=== PATIENT | female | born 1935 | race African-American/Black ===

== ENCOUNTER 2016-06-23 06:19 | Observation (INO) | payer OTHER ==
[2016-06-23] VITALS (8 sets, daily range): BP systolic 154–228; BP diastolic 77–115; PULSE 73–98; RESP 18–32; TEMP 97.8–98.8; O2SAT 91–98
[~2016-06-23] VITALS: Ht 154.9 cm; Wt 52.0 kg
[~2016-06-23 06:19] MED LIST: ACCU20TA PO; ALBU1AER INH; FERR324T4 PO; HYDR-3129 PO; LEVE500 PO; LEVO75TA3 PO; MEGE20TA PO; PLAV75TA PO; POTA20IN3 PO; PRED1SUS6 EACH EYE; SERT50 PO; SIMV40 PO; TIZA2TAB PO; TOPR100T15 PO; VARE1 PO; [UNRECOGNIZED DRUG - CODE] INH
[2016-06-23] MEDS ORDERED: methylPREDNISolone SOD SUCC 125 MG/2 ML VIAL ONE (06:26)
[2016-06-23] MEDS: RESP: ALBUTEROL 2.5 MG/IPRATROPIUM 0.5 MG NEB (SCH) INH ×3 (06:40→06:50)
[2016-06-23] MEDS ORDERED: IRON18TA2 PO (06:43)
[2016-06-23] MEDS ORDERED: SIMV40TA PO (06:43)
[2016-06-23] MEDS ORDERED: BECL80AE3 INH (06:43)
[2016-06-23] MEDS ORDERED: METO100T PO (06:43)
[2016-06-23] MEDS ORDERED: POTA-163 PO (06:43)
[2016-06-23] MEDS ORDERED: MEGE20TA PO (06:43)
[2016-06-23] MEDS ORDERED: CENTTAB PO (06:43)
[2016-06-23] MEDS ORDERED: LEVE500 PO (06:43)
[2016-06-23] MEDS ORDERED: PLAV75TA29 PO (06:43)
[2016-06-23] MEDS ORDERED: LEVO125T4 PO (06:43)
[2016-06-23] MEDS ORDERED: MAGNESIUM SULFATE 1 GM PREMIX 100 ML IV ONE (06:45)
[2016-06-23] MEDS ORDERED: hydrALAZINE HCL 20 MG/ML VIAL IV PUSH ONE (06:45)
[2016-06-23] MEDS ORDERED: methylPREDNISolone SOD SUCC 125 MG/2 ML VIAL IVP ONE (06:45)
[2016-06-23] MEDS ORDERED: SODIUM CHLORIDE 0.9% FLUSH 5 ML FLUSH IVF PRN (06:45)
--- NOTE | 2016-06-23 06:54 | PD ---
HPI Chief Complaint: Respiratory Distress Time Seen by Provider: 06:30 Travel History International Travel<30 days: No Contact w/Intl Traveler<30days: No Traveled to known affect area: No History of Present Illness HPI Patient is a 80-year-old female with history of COPD, presents to emergency room with complaints of COPD exacerbation. Patient reports that she woke up around 5 AM with shortness of breath and wheezing. Reports that she does smoke 6 cigarettes per day, she does not use home O2 at baseline. Reports that she has been coughing and noticed increased productive sputum over the past day. Patient reports no sick contacts. Patient denies any fevers or chills. Patient denies chest pain. Patient reports that her chest feels tight with her increased wheezing. PFSH Past Medical History Arthritis: Yes Cerebrovascular Accident: Yes (USES A CANE HAS RESIDUAL LEFT SIDED WEAKNESS) Coronary Artery Disease: Yes Diabetes: Yes GERD: Yes Hypertension: Yes Seizures: Yes Thyroid Disease: Yes ?: Not Menopausal: Yes Past Surgical History Hysterectomy: Yes Other Surgery: Yes (CAROTID ARTERY SX) Social History Alcohol Use: No Tobacco Use: Yes Substance Use: No Allergies-Medications (Allergen,Severity, Reaction): Coded Allergies: No Known Allergies (Unverified , 12/14/11) Reported Meds & Prescriptions Reported Meds & Active Scripts Active Reported Chantix 1 Mg Continuing Month Pack (Varenicline) 1 Mg Tab 1 Mg PO DAILY [place] 10/325 (Hydrocodone-Acetaminophen 10/325) Acetaminophen 325/10 Hydrocodone Tab 1 Tab PO Q6H PRN Plavix (Clopidogrel Bisulfate) 75 Mg Tab 75 Mg PO DAILY Accuretic 20/12.5 (Quinapril HCl/Hydrochlorothiazide) Tab 1 Tab PO DAILY Qvar (Beclomethasone Dipropionate) 80 Mcg/Act Aer 1 Puff INH BID Zoloft (Sertraline HCl) 50 Mg Tab 50 Mg PO DAILY Zanaflex 2 mg (Tizanidine HCl) 2 Mg Tab 2 Mg PO BID PRN Proair Hfa (Albuterol Sulfate) 8.5 Gm Aero 2 Puff INH Q4H PRN * SHAKE WELL BEFORE USE * Ferrous Sulfate 325 Mg Tab 325 Mg PO TID Zocor (Simvastatin) 40 Mg Tab 40 Mg PO HS Prednisolone Acetate 1 % Devi 2 Drop EACH EYE QID Potassium Chloride ER 20 meq 20 Meq Tab 20 Meq PO Q12 Toprol XL (Metoprolol Succinate) 100 Mg Tab 100 Mg PO DAILY Megace (Megestrol Acetate) 20 Mg Tab 20 Mg PO BIDPC Levothyroxine 75 mcg (Levothyroxine Sodium) 75 Mcg Tab 75 Mcg PO DAILY Keppra (Levetriacetam) 500 Mg Tab 500 Mg PO Q12 Review of Systems General / Constitutional: No: Fever, Chills Eyes: No: Visual changes HENT: No: Headaches Cardiovascular: No: Chest Pain or Discomfort Respiratory: Positive: Cough, Shortness of Breath Gastrointestinal: No: Abdominal Pain Genitourinary: No: Dysuria Musculoskeletal: No: Pain Skin: No Rash Neurologic: No: Weakness Psychiatric: No: Depression Endocrine: No: Polydipsia Hematologic/Lymphatic: No: Easy Bruising Physical Exam Narrative GENERAL: Patient in moderate respiratory distress SKIN: Warm and dry. HEAD: Atraumatic. Normocephalic. EYES: Pupils equal and round. No scleral icterus. No injection or drainage. ENT: No nasal bleeding or discharge. Mucous membranes pink and moist. NECK: Trachea midline. No JVD. CARDIOVASCULAR: Tachycardic. No murmur appreciated. RESPIRATORY: Patient with accessory muscle use. Patient with scattered diffuse wheezing GASTROINTESTINAL: Abdomen soft, non-tender, nondistended. Hepatic and splenic margins not palpable. MUSCULOSKELETAL: No obvious deformities. No clubbing. No cyanosis. No edema. NEUROLOGICAL: Awake and alert. No obvious cranial nerve deficits. Motor grossly within normal limits. Normal speech. PSYCHIATRIC: Appropriate mood and affect; insight and judgment normal. Data Data Last Documented VS Vital Signs Date Time Temp Pulse Resp B/P Pulse Ox O2 Delivery O2 Flow Rate FiO2 06/23/16 06:32 98.3 79 32 228/115 91 06/23/16 06:20 Room Air Orders Methylprednisolone So Succ Inj (Solumedr (06/23/16 06:26) Complete Blood Count With Diff (06/23/16 06:31) Comprehensive Metabolic Panel (06/23/16 06:31) B-Type Natriuretic Peptide (06/23/16 06:31) Act Partial Throm Time (Ptt) (06/23/16 06:31) Prothrombin Time / Inr (Pt) (06/23/16 06:31) Magnesium (Mg) (06/23/16 06:31) Ckmb (Isoenzyme) Profile (06/23/16 06:31) Troponin I (06/23/16 06:31) Arterial Blood Gas (Abg) (06/23/16 06:31) Urinalysis - C+S If Indicated (06/23/16 06:31) Influenzae A/B Antigen (06/23/16 06:31) Blood Culture (06/23/16 06:31) Iv Access Insert/Monitor (06/23/16 06:31) Ecg Monitoring (06/23/16 06:31) Oximetry (06/23/16 06:31) Oxygen Administration (06/23/16 06:31) Chest, Single Ap (06/23/16 06:31) Sodium Chloride 0.9% Flush (Ns Flush) (06/23/16 06:45) Methylprednisolone So Succ Inj (Solumedr (06/23/16 06:45) Albuterol-Ipratropium Neb (Duoneb Neb) (06/23/16 06:45) Magnesium Sulfate 1 Gm Premix (Magnesium (06/23/16 06:45) MDM Medical Decision Making Medical Screen Exam Complete: Yes Emergency Medical Condition: Yes Interpretation(s) Vital Signs Date Time Temp Pulse Resp B/P Pulse Ox O2 Delivery O2 Flow Rate FiO2 06/23/16 06:32 98.3 79 32 228/115 91 06/23/16 06:20 79 32 91 Room Air Differential Diagnosis COPD exacerbation, pneumonia, influenza, ACS, arrhythmia, electrolyte abnormality Narrative Course Patient is an 80-year-old female who presents to emergency room with COPD exacerbation. Patient is a smoker, currently is not on any home O2. Patient presents to emergency room and moderate respiratory distress, patient with increased wheezing diffusely. Patient was placed on monitoring engineer, was given IV Solu-Medrol as well as DuoNeb. EKG with sinus rhythm at 80 bpm, QT/QTc 390/426 labs and as well as xray of chest ordered. will continue to monitor pt pt signed out to day shift provider at change of shift Rianna Chang DO Jun 23, 2016 06:54
[2016-06-23 06:59] LABS: AUTOMATED NEUTROPHIL # 7.1 TH/MM3 (1.8-7.7); BASOPHIL % 0.4 % (0.0-2.0); EOSINOPHIL # 0.2 TH/MM3 (0-0.4); EOSINOPHIL % 1.7 % (0.0-4.0); HEMATOCRIT 36.5 % (35.0-46.0); HEMO FLAGS DIFF FINAL; LYMPH % 19.8 % (9.0-44.0); MEAN CELL VOLUME 88.9 FL (80.0-100.0); MEAN CORPUSCULAR HEMOGLOBIN 29.3 PG (27.0-34.0); MEAN CORPUSCULAR HGB CONC 32.9 % (32.0-36.0); MONO % 6.7 % (0.0-8.0); NEUT % 71.4 % (16.0-70.0); PLATELET COUNT 208 TH/MM3 (150-450); RED CELL DISTRIBUTION WIDTH 12.6 % (11.6-17.2)
--- NOTE | 2016-06-23 07:00 | RADRPT ---
EXAM DATE/TIME: 06/23/2016 06:32 [facility] COMPARISON: CHEST SINGLE AP, January 03, 2016, 19:43. INDICATIONS : Shortness of breath. MEDICAL HISTORY : None. SURGICAL HISTORY : None. ENCOUNTER: Initial ACUITY: 1 day PAIN SCORE: 0/10 LOCATION: Bilateral chest FINDINGS: A single view of the chest demonstrates bibasilar opacities greater in the right lower lobe. Heart no rmal in size. The cardiomediastinal contours are unremarkable. Osseous structures are intact. CONCLUSION: Bibasilar opacities. Car Arias MD on June 23, 2016 at 6:56 Board Certified Radiologist. This report was verified electronically.
[2016-06-23 07:08] LABS: APTT (PATIENT) 25.2 SEC (24.3-30.1); PROTHROMBIN TIME - PATIENT 11.1 SEC (9.8-11.6)
[2016-06-23 07:22] LABS: ALT (GPT) 30 U/L (10-53); ANION GAP 7 MEQ/L (5-15); AST (GOT) 27 U/L (15-37); BICARBONATE 26.2 MEQ/L (21.0-32.0); BLOOD UREA NITROGEN 17 MG/DL (7-18); CHLORIDE 110 MEQ/L (98-107); GLOMERULAR FILTRATION RATE 60 ML/MIN (>89); MAGNESIUM 1.9 MG/DL (1.5-2.5); POTASSIUM 4.2 MEQ/L (3.5-5.1); SODIUM (NA) 143 MEQ/L (136-145)
[2016-06-23 07:23] LABS: ALKALINE PHOSPHATASE 57 U/L (45-117); TOTAL BILIRUBIN ADULT 0.4 MG/DL (0.2-1.0)
[2016-06-23 07:41] LABS: CREATINE KINASE 71 U/L (26-192)
[2016-06-23 07:59] LABS: BLOOD GAS BASE EXCESS -3.6 mmol/L (-2-2); BLOOD GAS CARBOXYHEMOGLOBIN 2.8 % (0-4); BLOOD GAS HCO3 20 mmol/L (22-26); BLOOD GAS METHEMOGLOBIN 1.8 % (0-2); BLOOD GAS O2 HGB SATURATION 90 % (90-100); BLOOD GAS OXYGEN CONTENT 14.9 Vol % (12.0-20.0); BLOOD GAS PCO2 28 mmHg (38-42); BLOOD GAS PO2 65 mmHG (61-120); BLOOD GAS TOTAL HGB 11.8 G/DL (12.0-16.0); CRITICAL VALUE NO; DRAW SITE LT BRACHIAL; FIO2 21 %; NUMBER OF ARTERIAL PUNCTURES 1; TEMP CORR TO 98.6; ULNAR PULSE PRESENT
[2016-06-23 08:00] LABS: STAT YES
[2016-06-23] MEDS ORDERED: ONDANSETRON HCL 4 MG/2 ML VIAL IVP PRN (08:00)
[2016-06-23] MEDS ORDERED: SENNOSIDES 8.6 MG TAB PO PRN (08:00)
[2016-06-23] MEDS ORDERED: SODIUM CHLORIDE 0.9% FLUSH 5 ML FLUSH FLUSH PRN (08:00)
[2016-06-23] MEDS ORDERED: BISACODYL 10 MG SUPP PR PRN (08:00)
[2016-06-23] MEDS ORDERED: TEMAZEPAM 15 MG CAP PO PRN (08:00)
[2016-06-23] MEDS ORDERED: FUROSEMIDE 40 MG/4 ML VIAL IV PUSH ONE (08:00)
[2016-06-23] MEDS ORDERED: PROCHLORPERAZINE 25 MG SUPP PR PRN (08:00)
[2016-06-23] MEDS ORDERED: ACETAMINOPHEN 325 MG TAB PO PRN (08:00)
[2016-06-23] MEDS ORDERED: MAGNESIUM HYDROXIDE SUSP 30 ML CUP PO PRN (08:00)
--- NOTE | 2016-06-23 08:04 | PD ---
Physical Exam Date Seen by Provider: Jun 23, 2016 Time Seen by Provider: 07:00 Narrative Patient signed out to me at [address] Chang, please see previous notes for further information and details. Here with shortness of breath, history of COPD , and was given Solu-Medrol and DuoNeb's in the ER without significant improvement. Laboratory Tests Test 06/23/16 06/23/16 06:45 07:50 Neutrophils (%) (Auto) 71.4 % (16.0-70.0) Chloride Level 110 MEQ/L (98-107) Creatinine 1.07 MG/DL (0.50-1.00) Estimat Glomerular Filtration 60 ML/MIN (>89) Rate Random Glucose 161 MG/DL (74-106) Troponin I 0.09 NG/ML (0.02-0.05) B-Type Natriuretic Peptide 949 PG/ML (0-100) Albumin 3.1 GM/DL (3.4-5.0) Blood Gas HCO3 20 mmol/L (22-26) Blood Gas Base Excess -3.6 mmol/L (-2-2) Arterial Blood pH 7.46 (7.380-7.420) Arterial Blood Partial 28 mmHg (38-42) Pressure CO2 Blood Gas Hemoglobin 11.8 G/DL (12.0-16.0) Last 24 hours Impressions Chest X-Ray 06/23/16 0631 Signed Impressions: Service Date/Time: Thursday, June 23, 2016 06:32 - CONCLUSION: Bibasilar opacities. Car Arias MD EKG shows NSR, no ST elevation or depression, and no arrhythmias. No significant T-wave inversions. Chest x-ray shows basilar infiltrates and BNP is over 900. At this point, I am concerned about possible underlying CHF. Lasix was initiated in the ER. There is no significant white count and patient has been afebrile, I am less concerned about pneumonia in this case. Case was then discussed with Dr. Xiao for admission. Data Data Last Documented VS Vital Signs Date Time Temp Pulse Resp B/P Pulse Ox O2 Delivery O2 Flow Rate FiO2 06/23/16 07:30 98 22 180/80 94 Room Air 06/23/16 06:32 98.3 Orders Methylprednisolone So Succ Inj (Solumedr (06/23/16 06:26) Complete Blood Count With Diff (06/23/16 06:31) Comprehensive Metabolic Panel (06/23/16 06:31) B-Type Natriuretic Peptide (06/23/16 06:31) Act Partial Throm Time (Ptt) (06/23/16 06:31) Prothrombin Time / Inr (Pt) (06/23/16 06:31) Magnesium (Mg) (06/23/16 06:31) Ckmb (Isoenzyme) Profile (06/23/16 06:31) Troponin I (06/23/16 06:31) Arterial Blood Gas (Abg) (06/23/16 06:31) Urinalysis - C+S If Indicated (06/23/16 06:31) Influenzae A/B Antigen (06/23/16 06:31) Blood Culture (06/23/16 06:31) Iv Access Insert/Monitor (06/23/16 06:31) Ecg Monitoring (06/23/16 06:31) Oximetry (06/23/16 06:31) Oxygen Administration (06/23/16 06:31) Chest, Single Ap (06/23/16 06:31) Sodium Chloride 0.9% Flush (Ns Flush) (06/23/16 06:45) Methylprednisolone So Succ Inj (Solumedr (06/23/16 06:45) Albuterol-Ipratropium Neb (Duoneb Neb) (06/23/16 06:45) Magnesium Sulfate 1 Gm Premix (Magnesium (06/23/16 06:45) Hydralazine Inj (Apresoline Inj) (06/23/16 06:45) Electrocardiogram (06/23/16 06:29) Furosemide Inj (Lasix Inj) (06/23/16 08:00) Beclomethasone 80 Mcg Inh (Qvar 80 Mcg I (06/23/16 09:00) Clopidogrel (Plavix) (06/23/16 09:00) Levetiracetam (Keppra) (06/23/16 09:00) Levothyroxine (Synthroid) (06/23/16 09:00) Megestrol (Megace) (06/23/16 09:00) Metoprolol Tartrate (Lopressor) (06/23/16 09:00) Multivitamin Hematinic Therap (Theragran (06/23/16 09:00) Potassium Chloride (Kcl) (06/23/16 09:00) (Nf) Ferrous Fumarate (Iron) (06/23/16 09:00) (Nf) Simvastatin (06/23/16 21:00) Labs Laboratory Tests Test 06/23/16 06/23/16 06:45 07:50 White Blood Count 10.0 TH/MM3 Red Blood Count 4.10 MIL/MM3 Hemoglobin 12.0 GM/DL Hematocrit 36.5 % Mean Corpuscular Volume 88.9 FL Mean Corpuscular Hemoglobin 29.3 PG Mean Corpuscular Hemoglobin 32.9 % Concent Red Cell Distribution Width 12.6 % Platelet Count 208 TH/MM3 Mean Platelet Volume 9.2 FL Neutrophils (%) (Auto) 71.4 % Lymphocytes (%) (Auto) 19.8 % Monocytes (%) (Auto) 6.7 % Eosinophils (%) (Auto) 1.7 % Basophils (%) (Auto) 0.4 % Neutrophils # (Auto) 7.1 TH/MM3 Lymphocytes # (Auto) 2.0 TH/MM3 Monocytes # (Auto) 0.7 TH/MM3 Eosinophils # (Auto) 0.2 TH/MM3 Basophils # (Auto) 0.0 TH/MM3 CBC Comment DIFF FINAL Differential Comment Prothrombin Time 11.1 SEC Prothromb Time International 1.0 RATIO Ratio Activated Partial 25.2 SEC Thromboplast Time Sodium Level 143 MEQ/L Potassium Level 4.2 MEQ/L Chloride Level 110 MEQ/L Carbon Dioxide Level 26.2 MEQ/L Anion Gap 7 MEQ/L Blood Urea Nitrogen 17 MG/DL Creatinine 1.07 MG/DL Estimat Glomerular Filtration 60 ML/MIN Rate Random Glucose 161 MG/DL Calcium Level 8.7 MG/DL Magnesium Level 1.9 MG/DL Total Bilirubin 0.4 MG/DL Aspartate Amino Transf 27 U/L (AST/SGOT) Alanine Aminotransferase 30 U/L (ALT/SGPT) Alkaline Phosphatase 57 U/L Total Creatine Kinase 71 U/L Troponin I 0.09 NG/ML B-Type Natriuretic Peptide 949 PG/ML Total Protein 7.3 GM/DL Albumin 3.1 GM/DL Blood Gas Puncture Site LT BRACHIAL Blood Gas Patient Temperature 98.6 Blood Gas HCO3 20 mmol/L Blood Gas Base Excess -3.6 mmol/L Blood Gas Oxygen Saturation 90 % Arterial Blood pH 7.46 Arterial Blood Partial 28 mmHg Pressure CO2 Arterial Blood Partial 65 mmHG Pressure O2 Arterial Blood Oxygen Content 14.9 Vol % Arterial Blood 2.8 % Carboxyhemoglobin Arterial Blood Methemoglobin 1.8 % Blood Gas Hemoglobin 11.8 G/DL Blood Gas Inspired Oxygen 21 % MDM Medical Record Reviewed: Yes Supervised Visit with TERRI: No Diagnosis Primary Impression: CHF (congestive heart failure) Admitting Information Admitting Physician Requests: Guillaume Rubio MD Jun 23, 2016 08:04
[2016-06-23] MEDS ORDERED: RESP: ALBUTEROL 2.5 MG/IPRATROPIUM 0.5 MG NEB (PRN) NEB (08:15)
--- NOTE | 2016-06-23 08:20 | EKG ---
Date Performed: 06/23/2016 Time Performed: 06:29:28 PTAGE: 80 years EKG: Sinus rhythm LEFT VENTRICULAR HYPERTROPHY AND ST-T CHANGES ABNORMAL ECG PREVIOUS TRACING : 01/03/2016 20.19 No significant change from previous tracing noted. DOCTOR: Vin Lopez Interpretating Date/Time 06/23/2016 08:19:13
[2016-06-23] MEDS ORDERED: MEGESTROL ACETATE 40 MG TAB PO SCH (09:00)
[2016-06-23] MEDS: FUROSEMIDE 40 MG/4 ML VIAL IV PUSH SCH ×2 (09:00→17:46)
[2016-06-23] MEDS: METOPROLOL TARTRATE 100 MG TAB PO SCH ×2 (09:18→21:00)
[2016-06-23] MEDS: CLOPIDOGREL 75 MG TAB PO SCH (09:18)
[2016-06-23] MEDS: POTASSIUM CHLORIDE 20 MEQ CONTROLLED RELEASE TAB PO SCH (09:18)
[2016-06-23] MEDS: SODIUM CHLORIDE 0.9% FLUSH 5 ML FLUSH FLUSH SCH ×2 (09:19→21:00)
[2016-06-23] MEDS: levETIRAcetam 500 MG TAB PO SCH ×2 (09:19→21:00)
[2016-06-23 09:49] LABS: BLOOD, URINE NEG (NEG); GLUCOSE,URINE NEG (NEG); HYALINE CAST, URINE 4 /lpf (RARE); KETONE, URINE NEG (NEG); MUCUS URINE FEW /lpf (OCC); NITRITE,URINE NEG (NEG); SQUAMOUS EPITHELIAL CELL URINE 1 /hpf (0-5); URINE COLOR YELLOW (YELLW/STRAW)
[2016-06-23 09:50] LABS: COMMENT (UR) CULT NOT INDICATED; CULTURE IF INDICATED CULT NOT INDICATED
--- NOTE | 2016-06-23 11:03 | EKG ---
Date Performed: 06/23/2016 Time Performed: 08:31:31 PTAGE: 80 years EKG: Sinus rhythm WITH OCCASIONAL VENTRICULAR PREMATURE COMPLEXES LEFT VENTRICULAR HYPERTROPHY AND ST-T CHANGE ABNORMA L ECG PREVIOUS TRACING : 06/23/2016 06.29 No significant change from previous tracing noted. DOCTOR: Vin Lopez Interpretating Date/Time 06/23/2016 11:01:55
[2016-06-23] MEDS: LEVOTHYROXINE SODIUM 125 MCG TAB PO SCH (12:18)
[2016-06-23] MEDS: BECLOMETHASONE DIPROPIONATE 80 MCG/ACT 8.7 GM INHALER INH SCH ×2 (12:18→21:00)
[2016-06-23] MEDS: FERROUS FUMARATE 325 MG TAB (106 MG ELEMENTAL IRON) PO SCH ×2 (12:18→21:00)
[2016-06-23] MEDS: MULTIVITAMIN HEMATINIC THERAPEUTIC TAB PO SCH (12:18)
[2016-06-23] MEDS: ENOXAPARIN SODIUM 40 MG/0.4 ML SYRINGE SQ SCH (14:13)
[2016-06-23] MEDS ORDERED: ENALAPRILAT 2.5 MG/2 ML VIAL IV PUSH PRN (15:15)
--- NOTE | 2016-06-23 15:20 | HHI.HP ---
[facility] Primary Care Physician Non-Staff Admission Diagnosis shortness of breath/new-onset CHF Diagnoses: Chief Complaint: sob Travel History International Travel<30 Days: No Contact w/Intl Traveler <30 Da: No Traveled to Known Affected Are: No History of Present Illness 80-year-old female with history of COPD, CVA with residual left sided weakness, legally blind presents to emergency room with complaints of sob. Patient reports that she woke up around 5 AM with shortness of breath and wheezing. Reports that she does smoke 6 cigarettes per day, she does not use home O2 at baseline. Reports that she has been coughing and noticed increased productive sputum over the past day. Patient reports no sick contacts. Patient denies any fevers or chills. Patient denies chest pain. Patient reports that her chest feels tight with her increased wheezing. She uses a cane at home. Review of Systems ROS Limitations: Poor Historian Constitutional: DENIES: Fever, Chills, Change in appetite Endocrine: DENIES: Heat/cold intolerance Eyes: DENIES: Blurred vision, Eye pain Ears, nose, mouth, throat: DENIES: Tinnitus, Hearing loss, Vertigo, Nasal discharge, Oral lesions, Throat pain, Hoarseness, Ear Pain, Running Nose, Epistaxis, Sinus Pain, Toothache, Odynophagia Respiratory: COMPLAINS OF: Cough, Wheezing, Sputum production, Shortness of breath, DENIES: Apneas, Snoring, Hemoptysis Cardiovascular: COMPLAINS OF: Dyspnea on Exertion, Orthopnea, DENIES: Chest pain, Palpitations, Syncope, PND, Lower Extremity Edema, Claudication Gastrointestinal: DENIES: Abdominal pain, Black stools, Bloody stools, Constipation, Diarrhea, Nausea, Vomiting, Difficulty Swallowing, Anorexia Genitourinary: DENIES: Urinary frequency, Urinary incontinence, Urgency Musculoskeletal: DENIES: Joint pain Integumentary: DENIES: Rash Neurologic: DENIES: Abnormal gait, Headache, Localized weakness, Paresthesias, Seizures, Speech Problems, Tremor, Poor Balance Psychiatric: DENIES: Anxiety, Mood changes Past Family Social History Past Medical History COPD, CVA with residual left sided weakness, legally blind Past Surgical History CEA CS Reported Medications Last Impressions Chest X-Ray 06/23/16 0631 Signed Impressions: Service Date/Time: Thursday, June 23, 2016 06:32 - CONCLUSION: Bibasilar opacities. Car Arias MD Allergies: Coded Allergies: No Known Allergies (Unverified , 06/23/16) Family History Mother at her Father of old age Social History Tobacco use: 6 cig per day Denies EtOH, illicit drug use. Physical Exam Vital Signs Vital Signs Date Time Temp Pulse Resp B/P Pulse Ox O2 Delivery O2 Flow Rate FiO2 06/23/16 11:11 98.2 77 18 202/90 96 06/23/16 09:24 95 21 06/23/16 07:30 98 22 180/80 94 Room Air 06/23/16 06:32 98.3 79 32 228/115 91 06/23/16 06:20 79 32 91 Room Air 06/23/16 06:20 91 Aerosol Mask 06/23/16 06:20 32 91 Aerosol Mask Physical Exam GENERAL: This is a pleasant 80 yo AA female, legally blind, well-nourished, well -developed patient, in no apparent distress. SKIN: No rashes, ecchymoses or lesions. Cool and dry. HEAD: Atraumatic. Normocephalic. No temporal or scalp tenderness. EYES: Pupils equal round and reactive. Extraocular motions intact. No scleral icterus. No injection or drainage. ENT: Nose without bleeding, purulent drainage or septal hematoma. Throat without erythema, tonsillar hypertrophy or exudate. Uvula midline. Airway patent. NECK: Trachea midline. No JVD or lymphadenopathy. Supple, nontender, no meningeal signs. CARDIOVASCULAR: Regular rate and rhythm without murmurs, gallops, or rubs. RESPIRATORY: Decreased breath sounds. Bibasilar crackles. No wheezes, rales, or rhonchi. GASTROINTESTINAL: Abdomen soft, non-tender, nondistended. No hepato-splenomegaly , or palpable masses. No guarding. MUSCULOSKELETAL: Extremities without clubbing, cyanosis, or edema. No joint tenderness, effusion, or edema noted. No calf tenderness. Negative Homans sign bilaterally. NEUROLOGICAL: Awake and alert. Cranial nerves II through XII intact. Motor and sensory grossly within normal limits. Five out of 5 muscle strength in all muscle groups. Normal speech. Laboratory Laboratory Tests Test 06/23/16 06/23/16 06/23/16 06:45 07:50 09:00 White Blood Count 10.0 Red Blood Count 4.10 Hemoglobin 12.0 Hematocrit 36.5 Mean Corpuscular Volume 88.9 Mean Corpuscular Hemoglobin 29.3 Mean Corpuscular Hemoglobin 32.9 Concent Red Cell Distribution Width 12.6 Platelet Count 208 Mean Platelet Volume 9.2 Neutrophils (%) (Auto) 71.4 Lymphocytes (%) (Auto) 19.8 Monocytes (%) (Auto) 6.7 Eosinophils (%) (Auto) 1.7 Basophils (%) (Auto) 0.4 Neutrophils # (Auto) 7.1 Lymphocytes # (Auto) 2.0 Monocytes # (Auto) 0.7 Eosinophils # (Auto) 0.2 Basophils # (Auto) 0.0 CBC Comment DIFF FINAL Differential Comment Prothrombin Time 11.1 Prothromb Time International 1.0 Ratio Activated Partial 25.2 Thromboplast Time Sodium Level 143 Potassium Level 4.2 Chloride Level 110 Carbon Dioxide Level 26.2 Anion Gap 7 Blood Urea Nitrogen 17 Creatinine 1.07 Estimat Glomerular Filtration 60 Rate Random Glucose 161 Calcium Level 8.7 Magnesium Level 1.9 Total Bilirubin 0.4 Aspartate Amino Transf 27 (AST/SGOT) Alanine Aminotransferase 30 (ALT/SGPT) Alkaline Phosphatase 57 Total Creatine Kinase 71 Troponin I 0.09 0.34 B-Type Natriuretic Peptide 949 Total Protein 7.3 Albumin 3.1 Blood Gas Puncture Site LT BRACHIAL Blood Gas Patient Temperature 98.6 Blood Gas HCO3 20 Blood Gas Base Excess -3.6 Blood Gas Oxygen Saturation 90 Arterial Blood pH 7.46 Arterial Blood Partial 28 Pressure CO2 Arterial Blood Partial 65 Pressure O2 Arterial Blood Oxygen Content 14.9 Arterial Blood 2.8 Carboxyhemoglobin Arterial Blood Methemoglobin 1.8 Blood Gas Hemoglobin 11.8 Blood Gas Inspired Oxygen 21 Urine Color YELLOW Urine Turbidity CLEAR Urine pH 6.0 Urine Specific [place] 1.012 Urine Protein 100 Urine Glucose (UA) NEG Urine Ketones NEG Urine Occult Blood NEG Urine Nitrite NEG Urine Bilirubin NEG Urine Urobilinogen LESS THAN 2.0 Urine Leukocyte Esterase NEG Urine RBC LESS THAN 1 Urine WBC 1 Urine Squamous Epithelial 1 Cells Urine Hyaline Casts 4 Urine Mucus FEW Microscopic Urinalysis Comment CULT NOT INDICATED Date/Time Procedure Status Source Growth 1/9/17 08:30 Influenza Types A,B Antigen (ADDY) - Final Complete Nasal Aspirate NEGATIVE FOR FLU A AND B ANTIGEN.... 06/23/16 06:45 Aerobic Blood Culture Received Blood Peripheral Pending 06/23/16 06:45 Anaerobic Blood Culture Received Blood Peripheral Pending Result Diagram: 06/23/16 0645 06/23/16644 Imaging Last Impressions Chest X-Ray 06/23/16630 Signed Impressions: Service Date/Time: Thursday, June 23, 2016 06:32 - CONCLUSION: Bibasilar opacities. Car Arias MD Assessment and Plan Assessment and Plan Patient is an 80-year-old female who presents to emergency room with sob. New onset CHF H/O CVA COPD Hypertension not controlled EKG with sinus rhythm at 80 bpm, QT/QTc 390/426 Trops 0.9 will trend. Consult cardiology 2D ECHO BNP elevated. Lasix 40 mg IV bid Resume home meds, metoprolol, pavix, ASA. Received hydralazine in the ED. Add lisinopril. Vasotec IV, clonidine as need. DVT ppx with SCD/TEDs Code Status full Discussed Condition With patient, nurse, ED physician Stephanie Xiao MD Jun 23, 2016 15:20
[2016-06-23] MEDS ORDERED: cloNIDine HCL 0.1 MG TAB PO PRN (15:30)
[2016-06-23] MEDS ORDERED: LISINOPRIL 5 MG TAB PO ONE (15:50)
[2016-06-23] MEDS: amLODIPine BESYLATE 5 MG TAB PO SCH (17:45)
[2016-06-23] MEDS: ASPIRIN 81 MG CHEW TAB PO SCH (17:46)
[2016-06-23] MEDS: PRAVASTATIN SOD 80 MG TAB PO SCH (21:00)
--- NOTE | 2016-06-23 21:57 | MB ---
cc: MARY HDZ DATE OF CONSULTATION: 06/23/2016 REASON FOR CONSULTATION: CHF HISTORY OF PRESENT ILLNESS: Emmy Mcginnis is an 80 year-old female with a history of COPD. She continues to smoke currently six cigarettes a day. She came in due to abrupt onset of shortness of breath and wheezing this morning. She denies any chest pain but has had some chest tightness when she is wheezing. She had a previous stroke with left-sided residual weakness. She is also legally blind. She has had a previous carotid endarterectomy. She denies any claudication symptoms despite the findings in her lower extremities. PAST MEDICAL HISTORY 1. Prior stroke. 2. Legally blind. 3. COPD. PAST SURGICAL HISTORY: Carotid endarterectomy. section. SOCIAL HISTORY: Significant for smoking. FAMILY HISTORY: Negative for heart disease. REVIEW OF SYSTEMS: Otherwise negative. PHYSICAL EXAMINATION: An elderly -Mal[place]ian female in no acute distress. VITAL SIGNS: Charted. She has been severely hypertensive. HEENT: Unremarkable. NECK: Negative for JVD or bruits. CHEST: Bilateral wheezes. CARDIAC: S1-S2, regular rate and rhythm. There is a 1/6 systolic murmur. ABDOMEN: Soft. EXTREMITIES: Reveal bilateral femoral artery bruits and severely reduced pedal pulses. I can barely appreciate a right dorsalis pedis pulse. I could not feel any of the other pulses in her legs. EKG: Sinus rhythm, LVH with repolarization abnormality. LABORATORY DATA: Charted. Troponin has gone from 0.09 up to 0.34. BNP elevated 949, creatinine 1.07, hematocrit 36.5. Chest x-ray is interpreted as bibasilar opacities. IMPRESSION An 80-year-old female with COPD, longstanding smoking and appears to probably have underlying hypertensive heart disease, now has mild CHF and suspect also an acute non ST segment elevation myocardial infarction. RECOMMENDATIONS: At this point manage medically after discussion with the patient, to avoid a heart cath. I am going to add Amlodipine for hypertension, 2-D echo Doppler is ordered. Will check a lipid profile. Continue diuresis. Will need further medication adjustment. Further therapy to be determined. MD RENA Knott/OTONIEL /5:07 PM /9:27 PM
[2016-06-24] VITALS (7 sets, daily range): BP systolic 131–181; BP diastolic 62–75; PULSE 68–76; RESP 17–22; TEMP 97.8–98.4; O2SAT 95–100
[2016-06-24] MEDS: LEVOTHYROXINE SODIUM 125 MCG TAB PO SCH (05:15)
[2016-06-24 07:18] LABS: AUTOMATED NEUTROPHIL # 3.5 TH/MM3 (1.8-7.7); BASOPHIL % 0.2 % (0.0-2.0); EOSINOPHIL % 0.5 % (0.0-4.0); HEMATOCRIT 33.6 % (35.0-46.0); HEMO FLAGS DIFF FINAL; LYMPH % 26.5 % (9.0-44.0); LYMPHOCYTE # 1.6 TH/MM3 (1.0-4.8); MEAN CELL VOLUME 86.1 FL (80.0-100.0); MEAN CORPUSCULAR HEMOGLOBIN 28.8 PG (27.0-34.0); MEAN CORPUSCULAR HGB CONC 33.4 % (32.0-36.0); MONO % 12.9 % (0.0-8.0); NEUT % 59.9 % (16.0-70.0); PLATELET COUNT 193 TH/MM3 (150-450); RED CELL DISTRIBUTION WIDTH 12.3 % (11.6-17.2); WHITE BLOOD COUNT 5.9 TH/MM3 (4.0-11.0)
--- NOTE | 2016-06-24 07:27 | HHI.PR ---
Subjective Remarks Feels much better today. Less sob. Denies chest pain, n/v/d/c. Has a good urine output. Objective Vitals Vital Signs Date Time Temp Pulse Resp B/P Pulse Ox O2 Delivery O2 Flow Rate FiO2 06/24/16 04:53 98.4 68 20 158/72 95 06/24/16 00:09 98.2 75 22 145/67 97 06/23/16 22:39 73 06/23/16 19:27 98.8 82 20 154/77 98 06/23/16 17:16 97.8 80 20 187/80 96 06/23/16 11:11 98.2 77 18 202/90 96 06/23/16 09:24 95 21 06/23/16 07:30 98 22 180/80 94 Room Air Result Diagram: 06/23/16 0645 06/23/1645 Imaging Last Impressions Chest X-Ray 06/23/1631 Signed Impressions: Service Date/Time: Thursday, June 23, 2016 06:32 - CONCLUSION: Bibasilar opacities. Car Arias MD Objective Remarks GENERAL: This is a pleasant 80 yo AA female, legally blind, well-nourished, well -developed patient, in no apparent distress. SKIN: No rashes, ecchymoses or lesions. Cool and dry. HEAD: Atraumatic. Normocephalic. No temporal or scalp tenderness. EYES: Pupils equal round and reactive. Extraocular motions intact. No scleral icterus. No injection or drainage. ENT: Nose without bleeding, purulent drainage or septal hematoma. Throat without erythema, tonsillar hypertrophy or exudate. Uvula midline. Airway patent. NECK: Trachea midline. No JVD or lymphadenopathy. Supple, nontender, no meningeal signs. CARDIOVASCULAR: Regular rate and rhythm without murmurs, gallops, or rubs. RESPIRATORY: Decreased breath sounds. Bibasilar crackles. No wheezes, rales, or rhonchi. GASTROINTESTINAL: Abdomen soft, non-tender, nondistended. No hepato-splenomegaly , or palpable masses. No guarding. MUSCULOSKELETAL: Extremities without clubbing, cyanosis, or edema. No joint tenderness, effusion, or edema noted. No calf tenderness. Negative Homans sign bilaterally. NEUROLOGICAL: Awake and alert. Cranial nerves II through XII intact. Motor and sensory grossly within normal limits. Five out of 5 muscle strength in all muscle groups. Normal speech. A/P Assessment and Plan Patient is an 80-year-old female who presents to emergency room with sob. New onset CHF H/O CVA COPD Hypertension, not controlled Elevated troponin, likely demand ischemia from HTN and CHF EKG with sinus rhythm at 80 bpm, QT/QTc 390/426 Trops 0.09 ->0.3->0.3. Cardiology recommends medical management, likely demand ischemia Consult cardiology, appreciate recommendations, medical management. 2D ECHO pending BNP elevated. Lasix 40 mg IV bid change lasix to PO 40 mg daily Monitor UPO and Kidney indices Resume home meds, metoprolol, pavix, ASA. Received hydralazine in the ED. Add lisinopril. Vasotec IV, clonidine as need. Amlodipine increased to 10 MG. DVT ppx with SCD/TEDs Code Status full Discussed Condition With patient, nurse DC plan . Awaiting ECHO, DC if improved and after echo done, and cleared by cards. Stephanie Xiao MD Jun 24, 2016 07:27
[2016-06-24 08:00] LABS: BICARBONATE 25.8 MEQ/L (21.0-32.0); HDL CHOLESTEROL 64.6 MG/DL (40.0-60.0); MAGNESIUM 2.1 MG/DL (1.5-2.5); POTASSIUM 3.4 MEQ/L (3.5-5.1)
[2016-06-24] MEDS: ASPIRIN 81 MG CHEW TAB PO SCH (08:36)
[2016-06-24] MEDS: CLOPIDOGREL 75 MG TAB PO SCH (08:36)
[2016-06-24] MEDS: LISINOPRIL 5 MG TAB PO SCH (08:36)
[2016-06-24] MEDS: levETIRAcetam 500 MG TAB PO SCH ×2 (08:36→20:48)
[2016-06-24] MEDS: ENOXAPARIN SODIUM 40 MG/0.4 ML SYRINGE SQ SCH (08:37)
[2016-06-24] MEDS: FUROSEMIDE 40 MG/4 ML VIAL IV PUSH SCH (08:37)
[2016-06-24] MEDS: amLODIPine BESYLATE 5 MG TAB PO SCH (08:37)
[2016-06-24] MEDS: POTASSIUM CHLORIDE 20 MEQ CONTROLLED RELEASE TAB PO SCH ×2 (08:37→11:24)
[2016-06-24] MEDS: METOPROLOL TARTRATE 100 MG TAB PO SCH ×2 (08:37→20:48)
[2016-06-24] MEDS: SODIUM CHLORIDE 0.9% FLUSH 5 ML FLUSH FLUSH SCH ×2 (08:37→20:50)
[2016-06-24] MEDS: FERROUS FUMARATE 325 MG TAB (106 MG ELEMENTAL IRON) PO SCH ×2 (08:37→20:48)
[2016-06-24] MEDS: MULTIVITAMIN HEMATINIC THERAPEUTIC TAB PO SCH (08:37)
[2016-06-24] MEDS: BECLOMETHASONE DIPROPIONATE 80 MCG/ACT 8.7 GM INHALER INH SCH ×2 (08:39→20:50)
[2016-06-24] MEDS ORDERED: amLODIPine BESYLATE 5 MG TAB PO ONE ×2 (10:15→11:00)
--- NOTE | 2016-06-24 10:23 | PD.CARD.PN ---
Subjective Subjective Remarks no complaints. no chest pain Objective Medications Current Medications Medications (Trade) Dose Ordered Sig/Buster Route Start Time Stop Time Status Last Admin (NS Flush) 2 ml UNSCH PRN IVF 06/23/16 06:45 (Qvar 80 Mcg Inh) 2 puff BID INH 06/23/16 09:00 06/24/16 08:39 (Plavix) 75 mg DAILY PO 06/23/16 09:00 06/24/16 08:36 (Keppra) 500 mg BID PO 06/23/16 09:00 06/24/16 08:36 (Synthroid) 125 mcg DAILY@06 PO 06/23/16 10:00 06/24/16 05:15 (Megace) 20 mg QID PO 06/23/16 09:00 UNV (Lopressor) 100 mg BID PO 06/23/16 09:00 06/24/16 08:37 (Theragran Hematinic) 1 tab DAILY PO 06/23/16 09:00 06/24/16 08:37 (KCl) 20 meq DAILY PO 06/23/16 09:00 06/24/16 08:37 (Hemocyte) 325 mg BID PO 06/23/16 09:00 06/24/16 08:37 (Pravachol) 80 mg HS PO 06/23/16 21:00 06/23/16 21:00 (NS Flush) 2 ml UNSCH PRN FLUSH 06/23/16 08:00 (NS Flush) 2 ml BID FLUSH 06/23/16 09:00 06/24/16 08:37 (Tylenol) 650 mg Q4H PRN PO 06/23/16 08:00 (Zofran Inj) 4 mg Q6H PRN IVP 06/23/16 08:00 (Compazine Supp) 25 mg Q12H PRN [place] 06/23/16 08:00 (Dulcolax Supp) 10 mg DAILY PRN NV 06/23/16 08:00 (Milk Of Magnesia Liq) 30 ml Q12H PRN PO 06/23/16 08:00 (Senokot) 17.2 mg Q12H PRN PO 06/23/16 08:00 (Restoril) 15 mg HS PRN PO 06/23/16 08:00 (Lovenox Inj) 40 mg Q24H SQ 06/23/16 10:00 06/24/16 08:37 (Lasix Inj) 40 mg BID@09,18 IV PUSH 06/23/16 09:00 06/24/16 08:37 (Vasotec Inj) 2.5 mg Q6H PRN IV PUSH 06/23/16 15:15 (Catapres) 0.1 mg Q6H PRN PO 06/23/16 15:30 (Prinivil) 5 mg DAILY PO 06/24/16 09:00 06/24/16 08:36 (Aspirin Chew) 81 mg DAILY PO 06/23/16 17:30 06/24/16 08:36 (Norvasc) 10 mg DAILY PO 06/25/16 09:00 UNV (Norvasc) 5 mg ONCE ONCE PO 06/24/16 10:15 06/24/16 10:16 UNV Vital Signs / I&O Vital Signs Date Time Temp Pulse Resp B/P Pulse Ox O2 Delivery O2 Flow Rate FiO2 06/24/16 07:32 98.0 69 17 181/75 95 06/24/16 04:53 98.4 68 20 158/72 95 06/24/16 00:09 98.2 75 22 145/67 97 06/23/16 22:39 73 06/23/16 19:27 98.8 82 20 154/77 98 06/23/16 17:16 97.8 80 20 187/80 96 06/23/16 11:11 98.2 77 18 202/90 96 Physical Exam Alert Chest less wheezing, mild Laboratory Laboratory Tests Test 06/23/16 06/24/16 06/24/16 21:03 06:28 06:29 Troponin I 0.36 NG/ML Sodium Level 142 MEQ/L Potassium Level 3.4 MEQ/L Chloride Level 108 MEQ/L Carbon Dioxide Level 25.8 MEQ/L Anion Gap 8 MEQ/L Blood Urea Nitrogen 23 MG/DL Creatinine 1.18 MG/DL Estimat Glomerular Filtration 53 ML/MIN Rate Random Glucose 93 MG/DL Calcium Level 8.9 MG/DL Magnesium Level 2.1 MG/DL Triglycerides Level 58 MG/DL Cholesterol Level 128 MG/DL LDL Cholesterol 52 MG/DL HDL Cholesterol 64.6 MG/DL Cholesterol/HDL Ratio 1.98 RATIO White Blood Count 5.9 TH/MM3 Red Blood Count 3.90 MIL/MM3 Hemoglobin 11.2 GM/DL Hematocrit 33.6 % Mean Corpuscular Volume 86.1 FL Mean Corpuscular Hemoglobin 28.8 PG Mean Corpuscular Hemoglobin 33.4 % Concent Red Cell Distribution Width 12.3 % Platelet Count 193 TH/MM3 Mean Platelet Volume 9.2 FL Neutrophils (%) (Auto) 59.9 % Lymphocytes (%) (Auto) 26.5 % Monocytes (%) (Auto) 12.9 % Eosinophils (%) (Auto) 0.5 % Basophils (%) (Auto) 0.2 % Neutrophils # (Auto) 3.5 TH/MM3 Lymphocytes # (Auto) 1.6 TH/MM3 Monocytes # (Auto) 0.8 TH/MM3 Eosinophils # (Auto) 0.0 TH/MM3 Basophils # (Auto) 0.0 TH/MM3 CBC Comment DIFF FINAL Differential Comment B-Type Natriuretic Peptide 608 PG/ML Assessment and Plan Problem List: (1) Elevated troponin Assessment and Plan: Medical therapy (2) Hypertension Assessment and Plan: Increase amlodipine to 10mg (3) CHF (congestive heart failure) Assessment and Plan: change diuretic to PO. Await echo Sheldon Peña MD Jun 24, 2016 10:23
[2016-06-24] MEDS ORDERED: POTASSIUM CHLORIDE 20 MEQ CONTROLLED RELEASE TAB PO ONE (14:00)
--- NOTE | 2016-06-24 14:03 | EC ---
Study Study Date:06/23/2016 STUDY CONCLUSIONS SUMMARY - Left ventricle: The cavity size was normal. Wall thickness was increased in a pattern of moderate LVH. Systolic function was probably normal. The estimated ejection fraction was in the range of 55% to 60%. Wall motion was normal; there were no regional wall motion abnormalities. Doppler parameters are consistent with abnormal left ventricular relaxation (grade 1 diastolic dysfunction). - Mitral valve: Mildly calcified annulus. - Left atrium: The atrium was mildly dilated. - Pulmonary arteries: PA peak pressure: 36mm Hg (S). If LV function is below 40, please consider prescribing an ACEI or ARB or document rationale for non-use. PROCEDURE DATA STUDY STATUS: Elective. Procedure: Transthoracic echocardiography. Image quality was good. Scanning was performed from the parasternal, apical, and subcostal acoustic windows. Study completion: The patient tolerated the procedure well. Transthoracic echocardiography. M-mode, complete 2D, complete spectral Doppler, and color Doppler. Patient status: Inpatient. CARDIAC ANATOMY LEFT VENTRICLE: The cavity size was normal. Wall thickness was increased in a pattern of moderate LVH. Systolic function was probably normal. The estimated ejection fraction was in the range of 55% to 60%. Wall motion was normal; there were no regional wall motion abnormalities. Doppler parameters are consistent with abnormal left ventricular relaxation (grade 1 diastolic dysfunction). AORTIC VALVE: Mildly calcified leaflets. Doppler: There was no stenosis. No significant regurgitation. MITRAL VALVE: Mildly calcified annulus. Doppler: There was no evidence for stenosis. No significant regurgitation. Mean gradient: 2mm Hg (D). Peak gradient: 6mm Hg (D). LEFT ATRIUM: The atrium was mildly dilated. PULMONIC VALVE: Not well visualized. TRICUSPID VALVE: The valve appears to be grossly normal. Doppler: There was no evidence for stenosis. Trace regurgitation. Mild tricuspid annular calcification. PERICARDIUM: There was no pericardial effusion. BASIC MEASUREMENTS ADULT Normal Left ventricle LV internal dimension, ED, chordal level, *35.9 mm 43-52 PLAX LV posterior wall thickness, ED 6.62 mm IVS/LVPW ratio, ED *1.87 <1.3 Ventricular septum Septal thickness, ED 12.4 mm Aortic valve Leaflet separation 18 mm 15-26 Left atrium Anterior-posterior dimension 39 mm Right ventricle RV internal dimension, ED, PLAX 20.8 mm 19-38 BASIC MEASUREMENTS ADULT Normal Aortic valve Leaflet separation 18 mm 15-26 Aorta Root diameter, ED 30 mm 20-37 DOPPLER MEASUREMENTS ADULT Normal Main pulmonary artery Pressure, S *36 mm Hg =30 Aortic valve VTI, S 31.9 cm Mitral valve Peak E-wave velocity 84.4 cm/s Peak A-wave velocity 118 cm/s Mean velocity, D 56.4 cm/s Mean gradient, D 2 mm Hg Peak gradient, D 6 mm Hg Peak E/A ratio 0.7 Tricuspid valve Regurgitant peak velocity 245 cm/s Peak RV-RA gradient, S 24 mm Hg Maximal regurgitant velocity 245 cm/s Systemic veins Estimated CVP 10 mm Hg Right ventricle RV pressure, S *36 mm Hg <30 LEGEND: Mean values are shown as u=mean value. Asterisk (*) serrato values outside specified normal range. Prepared and signed by Manny Escoto [id number]
[2016-06-24] MEDS: PRAVASTATIN SOD 80 MG TAB PO SCH (20:48)
[2016-06-25 00:19] VITALS: PULSE 82
[2016-06-25 04:39] VITALS: BP 141/67; PULSE 87; RESP 21; TEMP 98.7; O2SAT 98
[2016-06-25] MEDS: LEVOTHYROXINE SODIUM 125 MCG TAB PO SCH (05:44)
[2016-06-25 05:47] LABS: BICARBONATE 27.1 MEQ/L (21.0-32.0); POTASSIUM 4.3 MEQ/L (3.5-5.1)
[2016-06-25 07:23] VITALS: BP 146/75; PULSE 68; RESP 18; TEMP 98.8; O2SAT 97
[2016-06-25] MEDS ORDERED: LISI-519 PO (07:36)
[2016-06-25] MEDS ORDERED: AMLO5 PO (07:36)
[2016-06-25] MEDS ORDERED: FURO1TAB62 PO (07:37)
[2016-06-25] MEDS ORDERED: ASPI81CH CHEW (07:38)
--- NOTE | 2016-06-25 07:38 | HHI.DCPOC ---
Discharge Care Plan Goals to Promote Your Health * To prevent worsening of your condition and complications * To maintain your health at the optimal level Directions to Meet Your Goals Take your medications as prescribed Follow your dietary instruction Follow activity as directed Keep your appointments as scheduled Take your immunizations and boosters as scheduled If your symptoms worsen call your PCP, if no PCP go to Urgent Care Center or Emergency Room Smoking is Dangerous to Your Health. Avoid second hand smoke Call the 24-hour hour crisis hotline for domestic abuse at Stephanie Xiao MD Jun 25, 2016 07:38
--- NOTE | 2016-06-25 07:39 | HHI.DS ---
Discharge Summary Admission Date Jun 23, 2016 at 08:02 Discharge Date: Jun 25, 2016 Admitting Diagnosis shortness of breath/new-onset CHF (1) CHF (congestive heart failure) ICD Code: I50.9 Diagnosis: Principal (2) Hypertension ICD Code: I10 Diagnosis: Principal (3) Elevated troponin ICD Code: R79.89 Diagnosis: Principal Procedures none Brief History - From Admission 80-year-old female with history of COPD, CVA with residual left sided weakness, legally blind presents to emergency room with complaints of sob. Patient reports that she woke up around 5 AM with shortness of breath and wheezing. Reports that she does smoke 6 cigarettes per day, she does not use home O2 at baseline. Reports that she has been coughing and noticed increased productive sputum over the past day. Patient reports no sick contacts. Patient denies any fevers or chills. Patient denies chest pain. Patient reports that her chest feels tight with her increased wheezing. She uses a cane at home. CBC/BMP: 06/24/16 0629 06/25/16 0502 Significant Findings Laboratory Tests Test 06/23/16 06/23/16 06/23/16 06/23/16 06:45 07:50 09:00 21:03 Neutrophils (%) (Auto) 71.4 % (16.0-70.0) Chloride Level 110 MEQ/L (98-107) Creatinine 1.07 MG/DL (0.50-1.00) Estimat Glomerular Filtration 60 ML/MIN (>89) Rate Random Glucose 161 MG/DL (74-106) Troponin I 0.09 NG/ML 0.34 NG/ML 0.36 NG/ML (0.02-0.05) (0.02-0.05) (0.02-0.05) B-Type Natriuretic Peptide 949 PG/ML (0-100) Albumin 3.1 GM/DL (3.4-5.0) Blood Gas HCO3 20 mmol/L (22-26) Blood Gas Base Excess -3.6 mmol/L (-2-2) Arterial Blood pH 7.46 (7.380-7.420) Arterial Blood Partial 28 mmHg (38-42) Pressure CO2 Blood Gas Hemoglobin 11.8 G/DL (12.0-16.0) Urine Protein 100 mg/dL (NEG-TRACE) Urine Mucus FEW /lpf (OCC) Test 06/24/16 06/24/16 06/25/16 06:28 06:29 05:02 Potassium Level 3.4 MEQ/L (3.5-5.1) Chloride Level 108 MEQ/L 110 MEQ/L (98-107) (98-107) Blood Urea Nitrogen 23 MG/DL (7-18) 33 MG/DL (7-18) Creatinine 1.18 MG/DL 1.30 MG/DL (0.50-1.00) (0.50-1.00) Estimat Glomerular Filtration 53 ML/MIN (>89) 48 ML/MIN (>89) Rate HDL Cholesterol 64.6 MG/DL (40.0-60.0) Red Blood Count 3.90 MIL/MM3 (4.00-5.30) Hemoglobin 11.2 GM/DL (11.6-15.3) Hematocrit 33.6 % (35.0-46.0) Monocytes (%) (Auto) 12.9 % (0.0-8.0) B-Type Natriuretic Peptide 608 PG/ML (0-100) Imaging Last Impressions Chest X-Ray 06/23/16 0631 Signed Impressions: Service Date/Time: Thursday, June 23, 2016 06:32 - CONCLUSION: Bibasilar opacities. Car Arias MD PE at Discharge GENERAL: This is a pleasant 80 yo AA female, legally blind, well-nourished, well -developed patient, in no apparent distress. SKIN: No rashes, ecchymoses or lesions. Cool and dry. HEAD: Atraumatic. Normocephalic. No temporal or scalp tenderness. EYES: Pupils equal round and reactive. Extraocular motions intact. No scleral icterus. No injection or drainage. ENT: Nose without bleeding, purulent drainage or septal hematoma. Throat without erythema, tonsillar hypertrophy or exudate. Uvula midline. Airway patent. NECK: Trachea midline. No JVD or lymphadenopathy. Supple, nontender, no meningeal signs. CARDIOVASCULAR: Regular rate and rhythm without murmurs, gallops, or rubs. RESPIRATORY: Decreased breath sounds. Bibasilar crackles. No wheezes, rales, or rhonchi. GASTROINTESTINAL: Abdomen soft, non-tender, nondistended. No hepato-splenomegaly , or palpable masses. No guarding. MUSCULOSKELETAL: Extremities without clubbing, cyanosis, or edema. No joint tenderness, effusion, or edema noted. No calf tenderness. Negative Homans sign bilaterally. NEUROLOGICAL: Awake and alert. Cranial nerves II through XII intact. Motor and sensory grossly within normal limits. Five out of 5 muscle strength in all muscle groups. Normal speech. Pt update on day of discharge Feels much better. No sob, chst pain . No nausea or diaphoresis. Wants to go home. Hospital Course Patient is an 80-year-old female who presents to emergency room with sob. New onset CHF with preserved EF 55-60%, grade 1 diastolic dysfunction H/O CVA COPD Hypertension, not controlled Elevated troponin, likely demand ischemia from HTN and CHF EKG with sinus rhythm at 80 bpm, QT/QTc 390/426 Trops 0.09 ->0.3->0.3. Cardiology recommends medical management, likely demand ischemia Consult cardiology, appreciate recommendations, medical management. 2D ECHO normal EF 55-60 % LVH, grade 1 diastolic dysfunction. Cleared by cards for DC to follow up as OP with PCP and consultants. BNP elevated. Lasix 40 mg IV bid change lasix to PO 40 mg daily Monitor UPO and Kidney indices Resume home meds, metoprolol, pavix, ASA. Received hydralazine in the ED. Add lisinopril. Vasotec IV, clonidine as need. Amlodipine increased to 10 MG. DVT ppx with SCD/TEDs Code Status full Discussed Condition With patient, nurse DC plan. Patient improved. ECHO nl EF 55-60 % LVH, grade 1 diastolic dysfunction. Cleared by cards for DC to follow up as OP with PCP and consultants. Pt Condition on Discharge: Fair Discharge Disposition: Discharge Home Discharge Time: <= 30 minutes Discharge Instructions DIET: Follow Instructions for: Heart Healthy Diet Activities you can perform: Regular-No Restrictions Follow up Referrals: Cardiology - 2 Weeks with Sheldon Peña MD PCP Follow-up - 3-5 Days New Medications: Aspirin (Aspirin) 81 Mg Chew 81 MG CHEW DAILY Blood Clot Prevention #30 Ref 0 TAB Furosemide (Lasix) 20 Mg Tab 20 MG PO DAILY Blood Pressure Management #30 Ref 0 TAB Amlodipine (Norvasc) 5 Mg Tab 10 MG PO DAILY Blood Pressure Management #30 TAB Lisinopril (Lisinopril) 5 Mg Tab 5 MG PO DAILY Blood Pressure Management #30 TAB Continued Medications: Beclomethasone Inh (Qvar Inh) 80 Mcg/Act Aero 2 PUFF INH BID Asthma Management #1 Ref 0 INHALER Clopidogrel (Plavix) 75 Mg Tab 75 MG PO DAILY Blood Clot Prevention #30 Ref 0 TAB Ferrous Fumarate (Iron) 18 Mg Tab 27 MG PO BID Nutritional Supplement Ref 0 TAB Levetiracetam (Keppra) 500 Mg Tab 500 MG PO BID Control Seizures #60 Ref 0 TAB Levothyroxine (Levothyroxine) 125 Mcg Tab 125 MCG PO DAILY Thyroid #30 Ref 0 TAB Megestrol (Megestrol) 20 Mg Tab 20 MG PO QID Ref 0 TAB Metoprolol Tartrate (Metoprolol Tartrate) 100 Mg Tab 100 MG PO BID #60 Ref 0 TAB Multiple Vitamins W/ Minerals (Centrum Silver) 1 Tab 1 TAB PO DAILY Nutritional Supplement Ref 0 TAB Potassium Chloride ER (Potassium Chloride ER) 20 Meq Tab 20 MEQ PO DAILY Electrolyte Replacement #30 Ref 0 TAB Simvastatin (Simvastatin) 40 Mg Tab 40 MG PO HS Cholesterol Management #30 Ref 0 TAB Stephanie Xiao MD Jun 25, 2016 07:39
[2016-06-25] MEDS ORDERED: FUROSEMIDE 40 MG TAB PO SCH (09:00)
[2016-06-25] MEDS ORDERED: amLODIPine BESYLATE 5 MG TAB PO SCH (09:00)
[2016-06-25] MEDS: ASPIRIN 81 MG CHEW TAB PO SCH (09:03)
[2016-06-25] MEDS: MULTIVITAMIN HEMATINIC THERAPEUTIC TAB PO SCH (09:03)
[2016-06-25] MEDS: CLOPIDOGREL 75 MG TAB PO SCH (09:03)
[2016-06-25] MEDS: METOPROLOL TARTRATE 100 MG TAB PO SCH (09:03)
[2016-06-25] MEDS: FERROUS FUMARATE 325 MG TAB (106 MG ELEMENTAL IRON) PO SCH (09:04)
[2016-06-25] MEDS: POTASSIUM CHLORIDE 20 MEQ CONTROLLED RELEASE TAB PO SCH ×2 (09:04)
[2016-06-25] MEDS: levETIRAcetam 500 MG TAB PO SCH (09:04)
[2016-06-25] MEDS: LISINOPRIL 5 MG TAB PO SCH (09:04)
[2016-06-25] MEDS: ENOXAPARIN SODIUM 40 MG/0.4 ML SYRINGE SQ SCH (09:04)
[2016-06-25] MEDS: SODIUM CHLORIDE 0.9% FLUSH 5 ML FLUSH FLUSH SCH (09:05)
[2016-06-25] MEDS: BECLOMETHASONE DIPROPIONATE 80 MCG/ACT 8.7 GM INHALER INH SCH (09:05)
--- NOTE | 2016-06-25 09:55 | PD.CARD.PN ---
Subjective Subjective Remarks no complaints, happy to go home Objective Medications Current Medications Medications (Trade) Dose Ordered Sig/Buster Route Start Time Stop Time Status Last Admin (NS Flush) 2 ml UNSCH PRN IVF 06/23/16 06:45 (Qvar 80 Mcg Inh) 2 puff BID INH 06/23/16 09:00 06/25/16 09:05 (Plavix) 75 mg DAILY PO 06/23/16 09:00 06/25/16 09:03 (Keppra) 500 mg BID PO 06/23/16 09:00 06/25/16 09:04 (Synthroid) 125 mcg DAILY@06 PO 06/23/16 10:00 06/25/16 05:44 (Lopressor) 100 mg BID PO 06/23/16 09:00 06/25/16 09:03 (Theragran Hematinic) 1 tab DAILY PO 06/23/16 09:00 06/25/16 09:03 (KCl) 20 meq DAILY PO 06/23/16 09:00 06/25/16 09:04 (Hemocyte) 325 mg BID PO 06/23/16 09:00 06/25/16 09:04 (Pravachol) 80 mg HS PO 06/23/16 21:00 06/24/16 20:48 (NS Flush) 2 ml UNSCH PRN FLUSH 06/23/16 08:00 (NS Flush) 2 ml BID FLUSH 06/23/16 09:00 06/25/16 09:05 (Tylenol) 650 mg Q4H PRN PO 06/23/16 08:00 (Zofran Inj) 4 mg Q6H PRN IVP 06/23/16 08:00 (Compazine Supp) 25 mg Q12H PRN [place] 06/23/16 08:00 (Dulcolax Supp) 10 mg DAILY PRN [place] 06/23/16 08:00 (Milk Of Magnesia Liq) 30 ml Q12H PRN PO 06/23/16 08:00 (Senokot) 17.2 mg Q12H PRN PO 06/23/16 08:00 (Restoril) 15 mg HS PRN PO 06/23/16 08:00 (Lovenox Inj) 40 mg Q24H SQ 06/23/16 10:00 06/25/16 09:04 (Vasotec Inj) 2.5 mg Q6H PRN IV PUSH 06/23/16 15:15 (Catapres) 0.1 mg Q6H PRN PO 06/23/16 15:30 (Prinivil) 5 mg DAILY PO 06/24/16 09:00 06/25/16 09:04 (Aspirin Chew) 81 mg DAILY PO 06/23/16 17:30 06/25/16 09:03 (Norvasc) 10 mg DAILY PO 06/25/16 09:00 06/25/16 09:03 (Lasix) 40 mg DAILY PO 06/25/16 09:00 06/25/16 09:04 (KCl) 20 meq DAILY PO 06/24/16 11:00 06/25/16 09:04 Vital Signs / I&O Vital Signs Date Time Temp Pulse Resp B/P Pulse Ox O2 Delivery O2 Flow Rate FiO2 06/25/16 07:23 98.8 68 18 146/75 97 06/25/16 05:18 21 06/25/16 04:39 98.7 87 21 141/67 98 06/25/16 00:19 82 06/24/16 21:05 97.8 76 21 159/68 100 06/24/16 15:25 98.3 70 17 131/62 95 06/24/16 11:27 98.0 71 17 142/66 96 I/O 06/24/16 06/24/16 06/24/16 06/25/16 06/25/16 06/25/16 07:00 15:00 23:00 07:00 15:00 23:00 Intake Total 980 ml Balance 980 ml Intake Oral 980 ml # Voids 7 # Bowel Movements 0 Physical Exam Alert Chest clear CV S1S2 RRR No edema Laboratory Laboratory Tests Test 06/25/16 05:02 Sodium Level 144 MEQ/L Potassium Level 4.3 MEQ/L Chloride Level 110 MEQ/L Carbon Dioxide Level 27.1 MEQ/L Anion Gap 7 MEQ/L Blood Urea Nitrogen 33 MG/DL Creatinine 1.30 MG/DL Estimat Glomerular Filtration 48 ML/MIN Rate Random Glucose 95 MG/DL Calcium Level 8.9 MG/DL Assessment and Plan Problem List: (1) Elevated troponin Assessment and Plan: prob small NSTEMI, med tx (2) Hypertension Assessment and Plan: now controlled (3) CHF (congestive heart failure) Assessment and Plan: Sheldon Carrera MD Jun 25, 2016 09:55
[2016-06-25 10:30] VITALS: PULSE 64
== END 2016-06-25 11:15 | disposition home or self-care (01) ==
LOC: NEPC 06:19 → NEDA 08:02 → NEPGCP 09:55
PROVIDERS: ADMIT Hospitalist; ATTEND Hospitalist
DX: I50.9 Heart failure, unspecified (principal); J44.1 Chronic obstructive pulmonary disease with (acute) exacerbation; I11.0 Hypertensive heart disease with heart failure; I25.10 Atherosclerotic heart disease of native coronary artery without angina pectoris; E11.9 Type 2 diabetes mellitus without complications; I69.354 Hemiplegia and hemiparesis following cerebral infarction affecting left non-dominant side; K21.9 Gastro-esophageal reflux disease without esophagitis; M19.90 Unspecified osteoarthritis, unspecified site; H54.8 Legal blindness, as defined in USA; F17.210 Nicotine dependence, cigarettes, uncomplicated
CPT/HCPCS: 36600; 71010; 80048; 80053; 80061; 81001; 82550; 82805; 83735; 83880; 84484; 85025; 85610; 85730; 87040; 87804; 93005; 93306; 94640; 94664; 96365; 96375; 97162; 99285; G0378; G8987; G8988; J0360; J1650; J1940; J2930; J3475

== ENCOUNTER 2017-07-15 09:40 | Emergency (ER) | payer OTHER ==
[~2017-07-15] VITALS: Ht 154.9 cm; Wt 62.0 kg
[~2017-07-15 09:40] MED LIST changes: -ACCU20TA PO; -ALBU1AER INH; +AMLO5 PO; +ASPI-516 CHEW; +BECL80AE3 INH; +CENTTAB PO; -FERR324T4 PO; +FURO1TAB62 PO; -HYDR-3129 PO; +IRON18TA2 PO; +LEVO125T4 PO; -LEVO75TA3 PO; +LISI-519 PO; +METO100T PO; -PLAV75TA PO; +PLAV75TA29 PO; +POTA-163 PO; -POTA20IN3 PO; -PRED1SUS6 EACH EYE; -SERT50 PO; -SIMV40 PO; +SIMV40TA PO; -TIZA2TAB PO; -TOPR100T15 PO; -VARE1 PO; -[UNRECOGNIZED DRUG - CODE] INH
[2017-07-15 09:41] VITALS: BP 222/89; PULSE 98; RESP 18; TEMP 98.8; O2SAT 95
[2017-07-15] MEDS ORDERED: OMEP20TA93 PO (10:17)
[2017-07-15] MEDS ORDERED: LEVO75TA3 PO (10:17)
[2017-07-15] MEDS ORDERED: CYCL5TAB PO (10:17)
[2017-07-15] MEDS ORDERED: HYDR-4107 PO (10:17)
[2017-07-15] MEDS ORDERED: FERR325T18 PO (10:17)
[2017-07-15 10:47] VITALS: BP 177/89
--- NOTE | 2017-07-15 10:50 | PD ---
HPI Chief Complaint: ENT Complaint Time Seen by Provider: 10:22 Travel History International Travel<30 days: No Contact w/Intl Traveler<30days: No Traveled to known affect area: No History of Present Illness HPI 81-year-old female presents to the emergency Department with complaint of a fish bone stuck in her throat since yesterday. Denies coughing, vomiting, choking. Has sensation of foreign body in her throat. Reports painful swallowing. Denies pain without swallowing. Rates pain 9/10 with swallowing. Has tried eating bread and other foods to alleviate her symptoms with no relief. Aggravated with swallowing. Relieved without swallowing. No known allergies. Primary care provider Dr. Sahu. History of hypertension, asthma , strokes. Denies anticoagulant therapy. Blood pressure is elevated in the ER. Patient has not taken any of her medications morning. She is asymptomatic. Has no other medical complaints. No other modifying factors or associated signs and symptoms. PFSH Past Medical History Arthritis: Yes Asthma: Yes Blood Disorders: No Anxiety: No Depression: No Heart Rhythm Problems: No Cancer: No Cardiovascular Problems: Yes High Cholesterol: No Chemotherapy: No Chest Pain: No Congestive Heart Failure: No COPD: No Cerebrovascular Accident: Yes (USES A CANE HAS RESIDUAL LEFT SIDED WEAKNESS) Coronary Artery Disease: Yes Diabetes: Yes Patient Takes Glucophage: No Endocrine: No GERD: Yes Genitourinary: No Hypertension: Yes Immune Disorder: No Musculoskeletal: No Neurologic: Yes (seizures ) Psychiatric: No Reproductive: No Respiratory: Yes Radiation Therapy: No Seizures: Yes Sleep Apnea: No Thyroid Disease: Yes Menopausal: Yes Past Surgical History Hysterectomy: Yes Other Surgery: Yes (CAROTID ARTERY SX) Social History Alcohol Use: No Tobacco Use: Yes (< 1 PPD) Substance Use: No Allergies-Medications (Allergen,Severity, Reaction): Coded Allergies: No Known Allergies (Unverified Adverse Reaction, Unknown, 07/15/17) Reported Meds & Prescriptions Reported Meds & Active Scripts Active Aspirin 81 Mg Chew 81 Mg CHEW DAILY Reported Omeprazole 20 Mg Tab 20 Mg PO DAILY Hydrocodone-Acetaminophen 5-300 Mg Tab 2 Tab PO TID PRN Ferrous Sulfate 325 Mg (65 Mg Iron) Tablet 325 Mg PO DAILY Flexeril (Cyclobenzaprine HCl) 5 Mg Tab 5 Mg PO TID Levothyroxine (Levothyroxine Sodium) 75 Mcg Tab 75 Mcg PO DAILY Simvastatin 40 Mg Tab 40 Mg PO HS Potassium Chloride ER (Potassium Chloride) 20 Meq Tab 20 Meq PO DAILY Megestrol (Megestrol Acetate) 20 Mg Tab 20 Mg PO QID Keppra (Levetiracetam) 500 Mg Tab 500 Mg PO BID Review of Systems Except as stated in HPI: all other systems reviewed are Neg Physical Exam Narrative GENERAL: Well-nourished, well-developed elderly, black female patient, in no acute distress; afebrile, nontoxic-appearing SKIN: Warm and dry. No rash. HEAD: Atraumatic. Normocephalic. EYES: Pupils equal and round. No scleral icterus. No injection or drainage. ENT: Mucosa pink and moist. No erythema or exudates. No uvular edema. No uvular , palatal, or tonsillar deviation. No visualized foreign body. Airway patent. EARS: Bilateral pinnae and external canals appear within normal limits. NECK: Trachea midline. No lymphadenopathy. CARDIOVASCULAR: Regular rate. RESPIRATORY: No accessory muscle use. GASTROINTESTINAL: Flat. MUSCULOSKELETAL: No obvious deformities. No clubbing. No cyanosis. No edema. NEUROLOGICAL: Awake and alert. Oriented 3. No obvious cranial nerve deficits. Motor grossly within normal limits. Normal speech. Moves all extremities. 5/5 strength to all extremities. PSYCHIATRIC: Appropriate mood and affect; insight and judgment normal. Data Data Last Documented VS Vital Signs Date Time Temp Pulse Resp B/P (MAP) Pulse Ox O2 Delivery O2 Flow Rate FiO2 07/15/17 13:43 99.4 83 18 194/88 (123) 98 Room Air Orders Orders Soft Tissue Neck (07/15/17 ) Ct Soft Tiss Neck W/O Iv Cont (07/15/17 ) [facility] Medical Decision Making Medical Screen Exam Complete: Yes Emergency Medical Condition: Yes Medical Record Reviewed: Yes Differential Diagnosis Sensation of foreign body in throat, food bolus, foreign body in throat Narrative Course 81-year-old female with sensation of foreign body in her throat. No choking, regurgitation, vomiting, coughing. Patient is able to speak in full sentences without complication. No visualized foreign body in the throat. CT soft tissue neck ordered. 1431: Soft tissue neck x-ray and CT soft tissue neck concludes: Soft Tissue Neck X-Ray 07/15/17 0000 Signed Impressions: Service Date/Time: Saturday, July 15, 2017 12:06 - CONCLUSION: No radiopaque foreign body is identified. Consider followup with CT if symptoms persist. Mason Wong MD Neck CT 07/15/17 0000 Signed Impressions: Service Date/Time: Saturday, July 15, 2017 13:53 - CONCLUSION: 1. No foreign body seen. Car Arias MD Discussed findings with the patient. Instructed patient to follow up with ENT or gastroenterology. Instructed patient to follow up with primary care provider. Patient verbalizes understanding and agreement with treatment plan. Patient is medically cleared and stable for discharge. Discussed reasons to return to the emergency department. Patient agrees with treatment plan. The patients vital signs are stable and the patient is stable for outpatient follow- up and treatment. Patient discharged home, stable and in no acute distress. Diagnosis Primary Impression: Sensation of foreign body in throat Referrals: Gig Tender Primary Care Physician Patient Instructions: General Instructions Additional Instructions: Avoid aggravating activities Follow-up with gastroenterology Follow-up with ENT Follow-up with primary care provider Return to the emergency department immediately with worsening of symptoms Med/Other Pt SpecificInfo: No Change to Meds, No Meds Exist/No RX given Disposition: 01 DISCHARGE HOME Condition: Stable Ivette Gaston Jul 15, 2017 10:50
--- NOTE | 2017-07-15 12:20 | RADRPT ---
EXAM DATE/TIME: 07/15/2017 12:06 [facility] COMPARISON: No previous studies available for comparison. INDICATIONS : Evaluate for foreign body. Possible fish bone. MEDICAL HISTORY : None. SURGICAL HISTORY : None. ENCOUNTER: Initial ACUITY: 2 days PAIN SCORE: 9/10 LOCATION: Left neck FINDINGS: AP and lateral views of the neck soft tissues demonstrate no definite radiopaque foreign body. There is thyroid cartilage calcification and presumed carotid artery calcification overlying the neck. The epiglottis has a normal appearance. There is no prevertebral soft tissue swelling. There is cervical kyphosis with multilevel degenerative disc disease. CONCLUSION: No radiopaque foreign body is identified. Consider followup with CT if symptoms persist. Mason Wong MD on July 15, 2017 at 12:16 Board Certified Radiologist. This report was verified electronically.
[2017-07-15 13:43] VITALS: BP 194/88; PULSE 83; RESP 18; TEMP 99.4; O2SAT 98
--- NOTE | 2017-07-15 14:16 | RADRPT ---
EXAM DATE/TIME: 07/15/2017 13:53 [facility] COMPARISON: No previous studies available for comparison. INDICATIONS : Left sided lower jaw possible foreign body. RADIATION DOSE: 23.75 CTDIvol (mGy) MEDICAL HISTORY : Seizures. Hypertension. Diabetes mellitus type 2. SURGICAL HISTORY : None. ENCOUNTER: Initial ACUITY: 2 days PAIN SCORE: 8/10 LOCATION: Left anterior lower jaw region. TECHNIQUE: Volumetric scanning of the neck was performed. Using automated exposure control and adjustment of th e mA and/or kV according to patient size, radiation dose was kept as low as reasonably achievable to obtain optimal diagnostic quality images. DICOM format image data is available electronically for re view and comparison. FINDINGS: NASOPHARYNX: The nasopharyngeal airway has a normal configuration. No mucosal thickening or mass is seen. OROPHARYNX: The intrinsic muscles of the tongue are symmetric. The tonsillar pillars are intact. The prevertebr al soft tissues are not thickened. LARYNX: The supraglottic, glottic, and infraglottic structures are intact. PARAPHARYNGEAL: The parapharyngeal space is intact. SALIVARY GLANDS: The parotid and submandibular glands are intact. LYMPH NODES: No enlarged or necrotic-appearing nodes. THYROID: Homogeneous enhancement without evidence of nodule. BONES: Unremarkable. OTHER: The internal carotid arteries course medially adjacent to the posterior larynx. CONCLUSION: 1. No foreign body seen. Car Arias MD on July 15, 2017 at 14:11 Board Certified Radiologist. This report was verified electronically.
== END 2017-07-15 14:44 | disposition home or self-care (01) ==
LOC: NEPD 09:40
DX: R09.89 Other specified symptoms and signs involving the circulatory and respiratory systems (principal); F17.200 Nicotine dependence, unspecified, uncomplicated; E07.9 Disorder of thyroid, unspecified; K21.9 Gastro-esophageal reflux disease without esophagitis
CPT/HCPCS: 70360; 70490; 99284